=== PATIENT | male | born 2000 | race Two or more races ===

== ENCOUNTER → 2023-05-14 | Emergency (ER) | payer OTHER ==
[~2023-05-14] VITALS: Ht 185.4 cm; Wt 81.6 kg
== END | disposition designated cancer center or children's hospital (05) ==
LOC: ER 13:33
DX: S01.81XA Laceration without foreign body of other part of head, initial encounter (principal); Y33.XXXA Other specified events, undetermined intent, initial encounter; Y93.89 Activity, other specified; Y92.89 Other specified places as the place of occurrence of the external cause; Y99.8 Other external cause status; Z20.822 Contact with and (suspected) exposure to COVID-19